=== PATIENT | male | born 1975 | race Caucasian/White ===

== ENCOUNTER → 2020-09-25 08:50 | Outpatient (CLI) | payer BC, SELFPAY ==
[2020-09-25 16:57] LABS: SARS-CoV-2 RNA PCR Positive
== END ==
PROVIDERS: PCP Emergency Medicine; Visit Provider Emergency Medicine
DX: U07.1 COVID-19 (principal)
CPT/HCPCS: C9803; U0003; U0005

== ENCOUNTER 2022-07-27 09:55 | Emergency (ER) | payer OTHER, SELFPAY ==
[2022-07-27 10:36] VITALS: BP 121/89; PULSE 97; RESP 16; TEMP 36.9; O2SAT 100
--- NOTE | 2022-07-27 11:47 | ED.URI ---
HPI - URI/Sore Throat General Chief Complaint: Upper Respiratory Infection Stated Complaint: pain left back shoulder/Bronchitis Time Seen by Provider: 07/27/22 11:48 Source: patient and RN notes reviewed Mode of arrival: ambulatory Limitations: no limitations History of Present Illness HPI Narrative: 46-year-old male presents with concern for 5 day history of cough congestion. Reports symptoms have began improved, however he has nail muscle strain in his left trapezius area. Reports he can feel a muscle pull when he coughed. Reports pain is exacerbated by movement, turning his neck. He denies shortness of breath or fever. He reports he has been taking Malvin back pain medicine. MD elicited complaint: cough and other (Muscle strain) Related Data Allergies Allergy/AdvReac Type Severity Reaction Status Date / Time NKDA Allergy Mild Uncoded 01/16/10 10:26 Review of Systems Review of Systems: CONSTITUTIONAL: Denies malaise, chills, sweats, or fever. EYES: Denies visual changes, redness, or discharge. ENT: Reports rhinorrhea, congestion. Denies sinus pain, otalgia and sore throat. CARDIOVASCULAR: Denies chest pain, palpitations, or edema. RESPIRATORY: Reports cough. Denies dyspnea. GASTROINTESTINAL: Denies abdominal pain, nausea, vomiting, diarrhea SKIN: Denies rash or itching. MUSCULOSKELETAL: Reports muscle strain in the left trapezius area NEUROLOGIC: Denies headache. All systems reviewed & are unremarkable except as noted in HPI and below PMFSH Comments At time of signature, agree with nursing past medical, surgical, social and family history. There is no relevant family history pertinent to the presenting complaint Exam Narrative: GENERAL: Well-appearing, well-nourished, and in no acute distress. HEAD: Normocephalic EYES: PERRLA, conjunctivae clear ENT: Nares clear. Mucous membranes moist. TM pearly hairston with dull light reflex bilaterally; no tragal tenderness. Oropharynx not erythematous without lesions. Tonsils not enlarged and without exudate, no drooling, no hoarseness, no trismus, uvula midline. NECK: Supple. No lymphadenopathy CHEST: Clear to auscultation, breath sounds equal. No wheezing, rhonchi, rales, or stridor. No respiratory distress, speaks in full sentences. Mild tenderness palpation in the left trapezius area HEART: Regular rate and rhythm. No murmur heard. SKIN: Warm, dry, no rash. NEURO: Alert and oriented x3. PSYCH: Normal mood and affect Course Course Emergency Course: Patient is aware of diagnosis, understands and agrees to treatment plan. Anticipatory guidance given. Patient agrees to follow-up as directed and is aware of reasons to seek care at the emergency department. Portions of this record may have been created with voice recognition software Level of Care: Express Care Visit Vital Signs Vital signs: Vital Signs Temperature 98.4 F 07/27/22 10:36 Pulse Rate 97 07/27/22 10:36 Respiratory Rate 16 07/27/22 10:36 Blood Pressure 121/89 07/27/22 10:36 Pulse Oximetry 100 07/27/22 10:36 Oxygen Delivery Room Air 07/27/22 10:36 Temperature 98.4 F 07/27/22 10:36 Pulse Rate 97 07/27/22 10:36 Respiratory Rate 16 07/27/22 10:36 Blood Pressure 121/89 07/27/22 10:36 Pulse Oximetry 100 07/27/22 10:36 Oxygen Delivery Room Air 07/27/22 10:36 Reviewed. MDM - URI/Sore Throat MDM Narrative Medical decision making narrative: Differential diagnosis considered: Lockhart virus, strep pharyngitis, allergic rhinitis, upper respiratory tract infection, sinusitis, rhinosinusitis, nasopharyngitis. viral pharyngitis, otitis media, otitis externa, pneumonia, bronchitis, viral cough syndrome, viral syndrome, and influenza. Exam findings show no acute concerns or changes; patient is non-toxic appearing and is in no distress. Patient is appropriate for outpatient treatment and follow-up. Lab Data Attestation: I reviewed the patient's lab results. Critical Care Time Critic
== END 2022-07-27 12:04 | disposition home or self-care (01) ==
PROVIDERS: Emergency Provider Nurse Practitioner
DX: J20.9 Acute bronchitis, unspecified (principal); S46.812A Strain of other muscles, fascia and tendons at shoulder and upper arm level, left arm, initial encounter; X58.XXXA Exposure to other specified factors, initial encounter
CPT/HCPCS: 99213; G0463

== ENCOUNTER 2022-08-11 19:02 | Emergency (ER) | payer OTHER, SELFPAY ==
[2022-08-11 19:07] VITALS: BP 141/95; PULSE 80; RESP 16; TEMP 36.7; O2SAT 98
[2022-08-11 19:11] VITALS: BP 141/95; PULSE 80; RESP 16; TEMP 36.7; O2SAT 98
--- NOTE | 2022-08-11 19:14 | ED.EAR ---
HPI - Ear Problem General Chief complaint: Ear Stated complaint: right ear Source: patient and RN notes reviewed History of Present Illness HPI Narrative: 46 yo M presents to urgent care with complaints of ear fullness and muffled hearing since Tuesday. Pt admits to wearing ear plugs at work daily. Pt reports drainage from his right ear prior to Tuesday. Pt reports pain to his ears as well. Pt also reporting bilateral eyelid redness and cracking x 3-4 weeks. Pt states he has been putting Vaseline on his eyes with good relief. pt states the eyes have been improving but continues to be red and cracking. Pt denies any visual disturbance, fevers, chills, vomiting, congestion, chest pain, or SOB. Related Data Allergies Allergy/AdvReac Type Severity Reaction Status Date / Time NKDA Allergy Mild Uncoded 01/16/10 10:26 Review of Systems Review of Systems: Pertinent positives and pertinent negatives per HPI. PMFSH Comments At the time of my signature, I reviewed and agree with the nursing past medical, surgical, social, and family history. There is no relevant family history pertinent to the patient complaint. Exam Narrative: GENERAL: This is a well-nourished, well-developed patient, in no apparent distress. HEAD: normocephalic, atraumatic. EYES: PERRL. Sclera clear/white. Vision is grossly intact. Bilateral lower and upper lids erythremic with cracking noted to upper lids. EARS: External ears normal, cerumen impaction of both ears. Yellowish/white cerumen noted in right ear. Both ears tender to examine. NOSE: External nose normal with no obvious nasal discharge, nares without redness, no rhinorrhea. THROAT: Mucous membranes moist, posterior pharynx clear. NECK: Neck supple, non-tender without lymphadenopathy, masses or thyromegaly. CARDIOVASCULAR: Regular rate and rhythm without murmurs, gallops, or rubs. RESPIRATORY: Clear to auscultation. Breath sounds equal bilaterally. No wheezes, rales, or rhonchi. SKIN: warm, intact with no suspicious lesions or rash, good texture and turgor. NEURO: awake, alert, and oriented to person, place and time. There were no obvious focal neurologic abnormalities. Course Course Level of Care: Express Care Visit Vital Signs Vital signs: Vital Signs Temperature 98.1 F 08/11/22 19:07 Pulse Rate 80 08/11/22 19:07 Respiratory Rate 16 08/11/22 19:07 Blood Pressure 141/95 H 08/11/22 19:07 Pulse Oximetry 98 08/11/22 19:07 Oxygen Delivery Room Air 08/11/22 19:07 Temperature 98.1 F 08/11/22 19:11 Pulse Rate 80 08/11/22 19:11 Respiratory Rate 16 08/11/22 19:11 Blood Pressure 141/95 H 08/11/22 19:11 Pulse Oximetry 98 08/11/22 19:11 Oxygen Delivery Room Air 08/11/22 19:11 reviewed. Medical Decision Making MDM Narrative Medical decision making narrative: Take the antibiotics as directed. Apply the antibiotic ointment as directed. May use Vaseline on the upper and lower orbital areas, ensure you don't get any Vaseline in your eyes. Attempt to wear fitted goggles at work to see if you notice any improvement. 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 Differential Diagnosis Differential Diagnosis: cerumen impaction, dermatitis, periorbital cellulitis. Vital Signs Vital Signs: Vital Signs Temperature 98.1 F 08/11/22 19:07 Pulse Rate 80 08/11/22 19:07 Respiratory Rate 16 08/11/22 19:07 Blood Pressure 141/95 H 08/11/22 19:07 Pulse Oximetry 98 08/11/22 19:07 Oxygen Delivery Room Air 08/11/22 19:07 Temperature 98.1 F 08/11/22 19:11 Pulse Rate 80 08/11/22 19:11 Respiratory Rate 16 08/11/22 19:11 Blood Pressure 141/95 H 08/11/22 19:11 Pulse Oximetry 98 08/11/22 19:11 Oxygen Delivery Room Air 08/11/22 19:11 Critical Care Time Critical Care Time Critical Care Time: No Discharge Plan Discharge Clinical Impression: Cerumen impaction, Dermatitis Patient Disposition: Home, S
== END 2022-08-11 19:07 | disposition home or self-care (01) ==
PROVIDERS: Emergency Provider Nurse Practitioner Family
DX: H61.23 Impacted cerumen, bilateral (principal); L30.9 Dermatitis, unspecified
CPT/HCPCS: 99213; G0463